=== PATIENT | female | born 1985 | race African-American/Black ===

== ENCOUNTER 2019-02-11 11:40 | Emergency (ER) | payer SELFPAY ==
[~2019-02-11] VITALS: Ht 162.6 cm; Wt 68.5 kg
[2019-02-11 11:45] VITALS: BP 128/76
--- NOTE | 2019-02-11 11:51 | NUR ---
PT AMBULATED TO ER BED 6
[2019-02-11] MEDS ORDERED: METOCLOPRAMIDE 10 MG/2 ML INJ VIAL IVP ONE (11:55)
[2019-02-11] MEDS ORDERED: NACL 0.9% 1,000 ML IV ONE (11:55)
--- NOTE | 2019-02-11 11:58 | NUR ---
DR. OROZCO BEDSIDE EVALUATING PT
--- NOTE | 2019-02-11 12:00 | NUR ---
C/O N/V/D X 2 DAYS. PT REPORTS TAKING A HOME TEST LAST NIGHT THAT CAME OUT POSITIVE. [id number], LMP 01/04/19. PT STATES SHE IS NOT GOING TO KEEP THE , AND SHE DOES NOT WANT AN U/S. LBM 02/10/19 - DIARRHEA. ABD SOFT/FLAT/NON TENDER, BOWEL SOUNDS ACTIVE X4. PT DENIES PAIN. BED IN LOW POSITION, SIDE RAIL UP X1
--- NOTE | 2019-02-11 12:00 | NUR ---
PT REFUSED U/S. PT STATES " I AM NOT GOING TO HAVE THE BABY, I WANT IT OUT". INFORMED DR. OROZCO.
--- NOTE | 2019-02-11 12:35 | NUR ---
BLOODWORK AND URINE WALKED OVER TO LAB
[2019-02-11 12:44] LABS: APPEARANCE,URINE CLEAR (CLEAR); BILIRUBIN,URINE NEGATIVE (NEGATIVE); BLOOD, URINE NEGATIVE (NEGATIVE); COLOR,URINE YELLOW (YELLOW); LEUKOCYTE ESTERASE ,URINE NEGATIVE (NEGATIVE); NITRITE, URINE NEGATIVE (NEGATIVE); UGLUCOSE NEGATIVE (NEGATIVE)
[2019-02-11 12:44] LABS: BASOPHILS % (AUTO) 0.6 % (0.0-2.0); EOSINOPHILS % (AUTO) 0.3 % (0.0-4.0); HEMATOCRIT 37.6 % (36-48); HEMOGLOBIN 12.4 g/dL (12.0-16.0); LYMPHOCYTES # (AUTO) 1.8 K/uL (2.5-16.5); LYMPHOCYTES % (AUTO) 27.5 % (20.5-51.1); MEAN CORPUSCULAR HEMOGLOBIN 29 pg (27-31); MEAN CORPUSCULAR HGB CONC 33 g/dL (33-37); MEAN CORPUSCULAR VOLUME 87.9 fL (80-94); MONOCYTES # (AUTO) 0.4 K/uL (0.8-1.0); MONOCYTES % (AUTO) 6.7 % (1.7-9.3); NEUTROPHILS # (AUTO) 4.3 K/uL (1.8-7.7); NEUTROPHILS % (AUTO) 64.9 % (42.2-75.2); PLATELET COUNT (AUTO) 196 K/uL (140-450); RED BLOOD CELL COUNT(AUTO) 4.28 MIL/uL (4.20-5.40); RED CELL DISTRIBUTION WIDTH 13.6 % (11.6-13.7); WHITE BLOOD COUNT (AUTO) 6.7 K/uL (4.8-10.8)
[2019-02-11 12:51] LABS: ANION GAP 13.5 (8-16); CARBON DIOXIDE 24.7 mmol/L (21-32); CREATININE 0.8 mg/dL (0.6-1.3); POTASSIUM 3.2 mmol/L (3.5-5.1)
[2019-02-11 12:53] LABS: RBC,URINE 0-5 /HPF (0-5); WBC,URINE 0-5 /HPF (0-5)
--- NOTE | 2019-02-11 13:08 | NUR ---
PT LAYING IN BED, RR EVEN AND UNLABORED. DENIES NAUSEA OR PAIN. VSS. ALL NEEDS MET.
[2019-02-11] MEDS ORDERED: POTASSIUM CHLORIDE 10 MEQ TABER PO ONE (13:10)
--- NOTE | 2019-02-11 14:00 | NUR ---
Note samira in EDM - 02/11/19 at 1407 by [email or web address] Patient discharged with v/s stable. Written and verbal after care instructions given and explained. Patient alert, oriented and verbalized understanding of instructions. Ambulatory with steady gait. All questions addressed prior to discharge. ID band removed. Patient advised to follow up with PMD. Rx of REGLAN given. Patient educated on indication of medication including possible reaction and side effects. Opportunity to ask questions provided and answered. PT SIGNED A WAIVER STATING SHE UNDERSTANDS THE RISKS OF REFUSING FURTHER DIAGNOSTIC PROCEDURES.
[2019-02-11 14:07] VITALS: BP 106/71
== END 2019-02-11 14:00 | disposition home or self-care (01) ==
LOC: MED 11:40
DX: O21.0 Mild hyperemesis gravidarum (principal); O26.891 Other specified pregnancy related conditions, first trimester; R19.7 Diarrhea, unspecified; Z3A.01 Less than 8 weeks gestation of pregnancy
CPT/HCPCS: 36415; 80048; 81001; 81025; 84702; 85025; 86900; 86901; 96361; 96374; 99283; J2765; J7030

== ENCOUNTER 2022-10-13 10:17 | Emergency (ER) | payer MEDICAID ==
[~2022-10-13] VITALS: Ht 162.6 cm; Wt 79.8 kg
[2022-10-13 10:23] VITALS: BP 124/73
--- NOTE | 2022-10-13 10:50 | NUR ---
37 YO FEMALE. BIBS PRESENTS TO THE ED C/O OF TERRIBLE HEADACHE STARTED YESTERDAY EVENING. HEADACHE IS GONE, BUT THIS MORNING SHE STARTED FEELING DIZZY AND WEAK, STATES NO VOMITING, BUT WHEN SHE EATS SHE FEELS LIKE SHE IS GOING TO VOMIT. DENIES ANY PMH AND ALLERGIES.
[2022-10-13 11:27] LABS: APPEARANCE,URINE CLEAR (CLEAR); BILIRUBIN,URINE NEGATIVE (NEGATIVE); BLOOD, URINE NEGATIVE (NEGATIVE); COLOR,URINE YELLOW (YELLOW); LEUKOCYTE ESTERASE ,URINE NEGATIVE (NEGATIVE); NITRITE, URINE NEGATIVE (NEGATIVE); UGLUCOSE 1+ (NEGATIVE)
[2022-10-13] MEDS ORDERED: ACETAMINOPHEN EXTRA STRENGTH 500 MG TAB PO ONE (12:10)
[2022-10-13] MEDS ORDERED: PNV1TABL8 PO (13:25)
[2022-10-13] MEDS ORDERED: DOXY1TCP PO (13:25)
[2022-10-13 13:53] LABS: BASOPHILS % (AUTO) 0.5 % (0.0-2.0); EOSINOPHILS # (AUTO) 0.1 K/uL (0-0.4); EOSINOPHILS % (AUTO) 0.7 % (0.0-4.0); HEMOGLOBIN 12.3 g/dL (12.0-16.0); LYMPHOCYTES % (AUTO) 21.6 % (20.5-51.1); MEAN CORPUSCULAR HEMOGLOBIN 29 pg (27-31); MEAN CORPUSCULAR HGB CONC 32 g/dL (33-37); MEAN CORPUSCULAR VOLUME 88.8 fL (80-94); MONOCYTES # (AUTO) 0.8 K/uL (0.8-1.0); MONOCYTES % (AUTO) 8.4 % (1.7-9.3); NEUTROPHILS # (AUTO) 6.4 K/uL (1.8-7.7); NEUTROPHILS % (AUTO) 68.8 % (42.2-75.2); PLATELET COUNT (AUTO) 176 K/uL (140-450); RED BLOOD CELL COUNT(AUTO) 4.28 MIL/uL (4.20-5.40); RED CELL DISTRIBUTION WIDTH 13.9 % (11.6-13.7); WHITE BLOOD COUNT (AUTO) 9.4 K/uL (4.8-10.8)
[2022-10-13 14:06] VITALS: BP 126/66
--- NOTE | 2022-10-13 14:08 | NUR ---
Patient discharged with v/s stable. Written and verbal after care instructions given and explained. Patient alert, oriented and verbalized understanding of instructions. Ambulatory with steady gait. All questions addressed prior to discharge. ID band removed. Patient advised to follow up with PMD. Rx of DICLEGIS AND PLUS IRON TABLET given. Patient educated on indication of medication including possible reaction and side effects. Opportunity to ask questions provided and answered.
[2022-10-13 14:39] LABS: ALBUMIN 3.8 g/dL (3.4-5.0); ANION GAP 15.6 (8-16); CARBON DIOXIDE 22.8 mmol/L (21-32); CREATININE 0.7 mg/dL (0.6-1.3); POTASSIUM 4.4 mmol/L (3.5-5.1); TOTAL BILIRUBIN 0.8 mg/dL (0.0-1.0)
== END 2022-10-13 14:06 | disposition home or self-care (01) ==
LOC: MED 10:17
DX: O21.8 Other vomiting complicating pregnancy (principal); O99.351 Diseases of the nervous system complicating pregnancy, first trimester; R51.9 Headache, unspecified; O34.81 Maternal care for other abnormalities of pelvic organs, first trimester; N83.201 Unspecified ovarian cyst, right side; Z3A.09 9 weeks gestation of pregnancy; Z79.899 Other long term (current) drug therapy
CPT/HCPCS: 36415; 76801; 80053; 81003; 81025; 84702; 85025; 99284; Q0092